=== PATIENT | male | born 1950 | race Caucasian/White ===

== ENCOUNTER → 2016-10-27 | Outpatient (CLI) | payer MEDICARE, OTHER ==
[~2016-10-27] MED LIST: ALBU6.7H INH; ALLE4TAB7 PO; ATOR20TA15 PO; CYCL1TAB29 PO; GABA300C5 PO; HYDR-3516 PO; HYDR-3534 PO; HYDR-3580 PO; LISI-519 PO; LISI10TA3 PO; PANT40TA3 PO; RANI150T PO; SYMB160A INH
[2016-10-27 12:37] LABS: AUTOMATED NEUTROPHIL # 3.1 TH/MM3 (1.8-7.7); EOSINOPHIL # 0.1 TH/MM3 (0-0.4); EOSINOPHIL % 2.4 % (0.0-4.0); HEMATOCRIT 37.8 % (39.0-51.0); HEMO FLAGS DIFF FINAL; LYMPH % 28.9 % (9.0-44.0); LYMPHOCYTE # 1.5 TH/MM3 (1.0-4.8); MEAN CELL VOLUME 95.2 FL (80.0-100.0); MEAN CORPUSCULAR HEMOGLOBIN 32.5 PG (27.0-34.0); MEAN CORPUSCULAR HGB CONC 34.2 % (32.0-36.0); MONO % 8.8 % (0.0-8.0); NEUT % 58.9 % (16.0-70.0); PLATELET COUNT 203 TH/MM3 (150-450); RED BLOOD COUNT 3.97 MIL/MM3 (4.50-5.90); RED CELL DISTRIBUTION WIDTH 13.5 % (11.6-17.2); WHITE BLOOD COUNT 5.2 TH/MM3 (4.0-11.0)
[2016-10-27 12:40] LABS: BLOOD, URINE NEG (NEG); GLUCOSE,URINE NEG (NEG); KETONE, URINE NEG (NEG); NITRITE,URINE NEG (NEG); URINE COLOR LIGHT-YELLOW (YELLW/STRAW)
[2016-10-27 12:42] LABS: COMMENT (UR) CULT NOT INDICATED; CULTURE IF INDICATED CULT NOT INDICATED
[2016-10-27 12:52] LABS: APTT (PATIENT) 21.7 SEC (24.3-30.1); PROTHROMBIN TIME - PATIENT 11.1 SEC (9.8-11.6)
[2016-10-27 13:05] LABS: ANION GAP 7 MEQ/L (5-15); AST (GOT) 21 U/L (15-37); BICARBONATE 24.8 MEQ/L (21.0-32.0); BLOOD UREA NITROGEN 20 MG/DL (7-18); CHLORIDE 109 MEQ/L (98-107); GLOMERULAR FILTRATION RATE 70 ML/MIN (>89); GLUCOSE,FASTING 77 MG/DL (74-99); POTASSIUM 4.2 MEQ/L (3.5-5.1); SODIUM (NA) 141 MEQ/L (136-145)
[2016-10-27 13:08] LABS: ALKALINE PHOSPHATASE 61 U/L (45-117); ALT (GPT) 18 U/L (12-78); TOTAL BILIRUBIN ADULT 0.6 MG/DL (0.2-1.0)
--- NOTE | 2016-10-27 14:20 | RADRPT ---
EXAM DATE/TIME: 10/27/2016 12:54 [facility] COMPARISON: No previous studies available for comparison. INDICATIONS : Evaluate for pneumonia, pneumothorax or ccommunicalbe disease. Pre back surgery MEDICAL HISTORY : Hypertension. SURGICAL HISTORY : None. ENCOUNTER: Initial ACUITY: 1 day PAIN SCORE: 0/10 LOCATION: chest FINDINGS: PA and lateral views of the chest demonstrate the lungs to be symmetrically aerated without evidence of mass, infiltrate or effusion. The cardiomediastinal contours are unremarkable. Osseous structure s are intact. CONCLUSION: No acute disease. David Delatorre MD on October 27, 2016 at 14:18 Board Certified Radiologist. This report was verified electronically.
--- NOTE | 2016-10-29 01:22 | EKG ---
Date Performed: 10/27/2016 Time Performed: 11:52:11 PTAGE: 66 years EKG: SINUS BRADYCARDIA WITH OCCASIONAL SUPRAVENTRICULAR PREMATURE COMPLEXES BORDERLINE ECG NO PREVIOUS TRACING DOCTOR: Bertram Hernandez Interpretating Date/Time 10/29/2016 01:22:04
== END ==
LOC: CPRE 11:33
PROVIDERS: ATTEND Neurological Surgery
DX: Z01.810 Encounter for preprocedural cardiovascular examination (principal); Z01.812 Encounter for preprocedural laboratory examination; M51.36 Other intervertebral disc degeneration, lumbar region; M43.06 Spondylolysis, lumbar region; Z79.01 Long term (current) use of anticoagulants; R00.1 Bradycardia, unspecified
CPT/HCPCS: 36415; 71020; 80053; 81001; 85025; 85610; 85730; 93005

== ENCOUNTER 2016-11-02 06:00 | Inpatient (IN) | payer MEDICARE, OTHER ==
[~2016-11-02] VITALS: Ht 182.9 cm; Wt 121.1 kg
[~2016-11-02 06:00] MED LIST changes: -CYCL1TAB29 PO; -GABA300C5 PO; -HYDR-3534 PO; -HYDR-3580 PO; -LISI10TA3 PO; -RANI150T PO
[2016-11-02] MEDS ORDERED: INSULIN HUMAN REGULAR 1,000 UNITS/10 ML VIAL SQ PRN (06:30)
[2016-11-02] MEDS ORDERED: CHLORHEXIDINE GLUCONATE 2 % 1 PACK (2 CLOTHS) TOPICAL PRN (06:30)
[2016-11-02] MEDS ORDERED: METOPROLOL TARTRATE 25 MG TAB PO PRN (06:30)
[2016-11-02] MEDS ORDERED: VANCOMYCIN HCL 1000 MG ON-CALL/NS 250 ML IV SCH ×2 (06:30)
[2016-11-02] MEDS ORDERED: SODIUM CHLORID 0.9% 500 ML IV PRN (06:30)
[2016-11-02] MEDS ORDERED: POVIDONE IODINE 5% (ANTISEPSIS KIT) 4 APPLICATIONS EACH NARE PRN (06:30)
[2016-11-02] MEDS: SODIUM CHLOR 0.9% 1000 ML INJ 1,000 ML IV SCH ×3 (06:30→23:54)
[2016-11-02] MEDS ORDERED: LACTATED RINGER'S 1000 ML IV PRN (06:30)
[2016-11-02] MEDS ORDERED: THROMBIN (TOPICAL) 5,000 UNIT VIAL ONE (07:34)
[2016-11-02] MEDS ORDERED: BUPIVACAINE/EPINEPHRINE 0.5% 50 ML VIAL ONE (07:34)
[2016-11-02] MEDS ORDERED: VANCOMYCIN HCL 1000 MG VIAL ONE (07:34)
[2016-11-02] MEDS ORDERED: GELFOAM SIZE 100 ONE (07:35)
[2016-11-02] MEDS ORDERED: ACETAMINOPHEN 1000 MG/100 ML 100 ML IV ONE (08:10)
[2016-11-02] MEDS ORDERED: ARTIFICIAL TEARS OPTH OINT 3.5 APPLIC/3.5 GM TUBO ONE (08:10)
[2016-11-02] MEDS ORDERED: FAMOTIDINE 20 MG/2 ML VIAL ONE (08:24)
[2016-11-02] MEDS ORDERED: MIDAZOLAM HCL 2 MG/2 ML VIAL ONE (08:24)
--- NOTE | 2016-11-02 08:53 | MH ---
cc: CHRYSTAL RODRIGUEZ DATE OF ADMISSION 11/02/2016 DATE OF ADMISSION 11/02/2016 ADMISSION DIAGNOSIS Lumbar degenerative disk disease HISTORY OF PRESENT ILLNESS This is a 66-year-old male who we initially saw her in December of 2014 when he presented for an evaluation of low back pain and left leg pain. He stated he had a history of low back pain for over 20 years. In the past, he has seen a chiropractor for adjustments which would help with his exacerbations. In October of 2014, he saw his primary care physician for an exacerbation of his low back pain and left leg pain. He states the pain radiates into the left anterior thigh and anterior cuellar and lateral calf. He has numbness in the right anterior thigh and right lateral calf. He also now more recently was seen and he had complaints of pain radiating to the right groin and anterior thigh and also into the cuellar and top of the foot. He also reports that he had fallen secondary to his right leg giving out on him. He has been using a cane for the last two or three months. He has been to pain management and had injections recently which did not help. His pain currently is 7-8/10 in the morning and at night he says that it goes up to 10/10 and even higher. The patient cannot have an MRI scan secondary to metal in has head, so he has had a CT myelogram which were reviewed with the patient on February 11, 2015. He has also had a recent CT of the lumbar spine without contrast. The patient has difficulty walking. He states that he can walk less than a mile. The patient states has tried traction in the 1980s which made his pain worse. He has also had physical therapy in the 1980s which made his pain worse. PAST MEDICAL HISTORY 1. Gastroesophageal reflux disease, 2. Chronic obstructive pulmonary disease 3. Hyperlipidemia, 4. Hypertension, 5. Sleep apnea, uses a C-PAP machine 6. Tonsillectomy in 1959, 7. Right arm surgery in 2010. 8. He is a wounded war from 1968. SOCIAL HISTORY He drinks zero to two drinks of alcohol per day. He denies any substance abuse. He quit smoking in 2003. MEDICATIONS Current, 1. Pantoprazole 40 mg daily. 2. Hydrocodone/Acetaminophen 7.5 mg/325 mg p.r.n. pain. 3. Gabapentin 300 mg t.i.d. 4. Zantac 150 mg p.o. daily. 5. Lisinopril 10 mg p.o. daily 6. Chlorpheniramine 4 mg q.4 h. 7. Atorvastatin 20 mg q.h.s. 8. Proventil inhaler 2 puffs q.4 h. ALLERGIES PENICILLIN G FAMILY HISTORY Noncontributory to his current problem. REVIEW OF SYSTEMS GENERAL: Denies any fever or chills. EARS, NOSE AND THROAT: No pharyngitis, exudates or bloody drainage from his nose. CARDIOVASCULAR: No chest pain or palpitations RESPIRATORY: Positive for shortness of breath and wheezing ABDOMEN: No nausea or vomiting, abdominal pain. GENITOURINARY:: No dysuria or hematuria. MUSCULOSKELETAL: Positive for low back pain. SKIN: No rashes or pruritus NEUROLOGIC: No difficulty with speech or memory ENDOCRINE: No polyuria, polydipsia. HEMATOLOGIC: Positive for easy bruising. No bleeding tendencies. PHYSICAL EXAMINATION HEAD: Normocephalic, atraumatic. NECK: Supple. No carotid bruits heard on auscultation. LUNGS: Clear to auscultation bilaterally. CARDIAC: Regular rate and rhythm, normal S1, S2 ABDOMEN: Soft, nontender. Positive bowel sounds. SKIN: No cyanosis or erythema. MUSCULOSKELETAL: He has bilateral iliopsoas weakness, right more than left, related to pain and weakness. Otherwise, his strength is 5/5 in the lower extremities. He ambulates with a cane. NEUROLOGIC: He is awake, alert and oriented. Cranial nerves II-XII appear grossly intact. Speech is fluent. Comprehension is good. He follows commands well. Sensation reveals numbness in the right lateral thigh otherwise intact in the lower extremities. IMAGING STUDIES CT myelogram of the lumbar spine from January 29, [address] lumbar spine from 09/09/2016 reveals bilateral L5 pars defect with facet arthropathy. He has a central L4-L5 disk protrusion. IMPRESSION A 66-year-old male with a chronic history of low back pain along with right L5 radiculopathy and, more recently, started experiencing some left thigh pain and also the calf. He has numbness and paresthesias that radiate into the right more than left to the dorsal aspect of the right foot and his leg is giving out on him a few times, also has fallen, and uses a cane to get around. The patient underwent epidural injection which made his symptoms worse and the patient states that he cannot live with his current level of discomfort and activity restriction. They are requesting that we proceed with surgical intervention. PLAN We have discussed the findings with the patient and it appears that the L5-S1 pars defect with facet arthropathy and consequent L5 nerve root impingement to the right more than left is more symptomatic for him. The back pain bothers him equally as much as the lower extremity symptoms, which are aggravated with any activity. We have discussed an L5-S1 interbody fusion with pedicle screw fixation. We have discussed the procedure as well as the risk, benefit, alternative and recovery time in great detail with the patient. No guarantees were given to the patient. We also discussed the possibility of adjacent segment disk disease progression. We have also discussed the alternatives of surgical intervention and the risk and benefits with those. I discussed the risks involved with surgery include but not limited to bleeding, infection, muscle weakness, voice hoarseness, difficulty swallowing, heart attack, stroke, blood clots, non fusion, scar tissue formation among others. The patient states that he understands the procedure as well as the risks involved and he is requesting that we proceed. He understands the procedure and all his questions were answered to his satisfaction. He also understands that there are no guarantees with surgery and he wants to proceed and he was therefore scheduled accordingly. Dictated by Inocente Goldstein PA-C MD ARMIN Hanley/ /4:58 PM /8:48 AM
[2016-11-02] MEDS ORDERED: ePHEDrine/NS 25 MG/5 ML SYR IV ONE ×2 (12:00)
[2016-11-02] MEDS ORDERED: LACTATED RINGER'S 1000 ML INJ 1,000 ML IV ONE (12:00)
[2016-11-02] MEDS ORDERED: PROPOFOL 200 MG/20 ML AMP IV ONE (12:00)
[2016-11-02] MEDS ORDERED: GLYCOPYRROLATE 0.4 MG/2 ML VIAL IV ONE (12:00)
[2016-11-02] MEDS ORDERED: NEOSTIGMINE 3 MG/3 ML SYR IV ONE (12:00)
[2016-11-02] MEDS ORDERED: PHENYLEPH/NS 1000 MCG/10 ML SYR IV ONE (12:00)
[2016-11-02] MEDS ORDERED: ONDANSETRON HCL 4 MG/2 ML VIAL IV PUSH ONE (12:00)
[2016-11-02] MEDS ORDERED: ROCURONIUM INJ 50 MG/5 ML SYRINGE IV PUSH ONE (12:00)
[2016-11-02] MEDS ORDERED: ACETAMINOPHEN 325 MG TAB PO PRN (12:30)
[2016-11-02] MEDS ORDERED: MAGNESIUM SULFATE INJ 2 GM in SODIUM CHLORIDE 0.9% INJ 100 ML IV PRN (12:30)
[2016-11-02] MEDS ORDERED: NALOXONE HCL 0.4 MG/ML AMP IV PRN (12:30)
[2016-11-02] MEDS ORDERED: MENTHOL LOZENGE BUCCAL PRN (12:30)
[2016-11-02] MEDS ORDERED: PROMETHAZINE INJ 25 MG/ML VIAL IM PRN (12:30)
[2016-11-02] MEDS ORDERED: ONDANSETRON HCL 4 MG/2 ML VIAL IV PRN (12:30)
[2016-11-02] MEDS ORDERED: cloNIDine HCL 0.1 MG TAB PO PRN (12:30)
[2016-11-02] MEDS ORDERED: ALUMINUM/MAGNESIUM/SIMETH 30 ML CUP PO PRN (12:30)
[2016-11-02] MEDS ORDERED: POTASSIUM CHLOR 20 MEQ PREMIX 100 ML IV PRN (12:30)
[2016-11-02] MEDS ORDERED: diphenhydrAMINE HCL 50 MG/ML VIAL IV PRN (12:30)
[2016-11-02] MEDS ORDERED: RESP: ALBUTEROL 2.5 MG/3 ML NEB (PRN) NEB (12:30)
[2016-11-02] MEDS ORDERED: ACETAMINOPHEN/HYDROcodone 325 MG/10 MG TAB PO PRN (12:30)
[2016-11-02] MEDS ORDERED: SODIUM CHLORIDE 0.9% FLUSH 10 ML FLUSH IV FLUSH PRN (12:30)
[2016-11-02] MEDS ORDERED: CALCIUM GLUCONATE INJ 1 GM in SODIUM CHLORIDE 0.9% INJ 100 ML IV PRN (12:30)
--- NOTE | 2016-11-02 12:33 | PD.OP ---
Ramses Loera MD Operative Report Date of Surgery: Nov 02, 2016 Preoperative Diagnosis: Intractable low back pain with right L5 radiculopathy; L5-S1 bilateral pars defect with facet arthropathy and foraminal stenosis Postoperative Diagnosis: Same Procedure: L5-S1 transforaminal interbody fusion with pedicle screw fixation; L5-S1 interbody cage placement; microsurgical technique Anesthesia: Gen. endotracheal by Leonid Richard Surgeon: Robin Richmond M.D. Leather Tooler(s): Samanta Garcia Operation and Findings: Following initiation of general endotracheal anesthesia, the patient had a Yang catheter placed along with sequential compression devices. A gram of vancomycin was administered intravenously and he was turned in a prone position on a Alex frame, on a Cecilio table, and all pressure points adequately padded. The lumbosacral region was then prepped with Chloraprep and sterilely draped with Ioban along the usual sterile draping. A right paraspinal skin incision was then made extending from the L5-S1 level after infiltrating the skin with 0.5% Marcaine with epinephrine solution extending down through the fascia. The muscle fibers were split using avascular fatty plane and detached from the underlying facets, transverse process and lateral portion of lamina on the right side and a self-retaining retractor used for exposure. Intraoperative fluoroscopy was also used for level of confirmation along with microscope magnification for further dissection. There was significant facet and ligamentum flavum hypertrophy noted as well as L5 pars defect with inflammatory changes the in instability leading to foraminal stenosis. Right L5 -S1 facet as well as inflammatory tissue from the pars defect was resected with a drill bit along with the lateral portion of the lamina. There was some disc height collapse along with disc protrusion also leading to the foraminal stenosis. Epidural hemostasis was achieved with bipolar cautery and Gelfoam with thrombin. Subsequently entered into the disc space at the L5-S1 level with a #15 blade and mahogany were used for discectomy. I then placed PEEK cage packed with local autograft bone and more local autograft bone was packed adjacent to the cage in interspace for added interbody fusion. With placement of the cage, I was able to distract the interspace and opened up the foramen further bilaterally. Subsequently in order to facilitate the fusion and provide stabilization, pedicle screw fixation was undertaken using [place] spine screws on entry point at the right L5 levels at the junction of the transverse process and facet and sacral ala. Subsequently using AP and lateral fluoroscopy tap and screw placement. The screws were then connected with a estelle and locked in place with caps. The construct appeared very secure at this point. The area was then copiously irrigated with Vancomycin solution and powder. The retractors were removed and the bipolar cautery used for hemostasis. The muscle fascia was then approximated using 2-0 Vicryl interrupted stitches and then 3-0 Vicryl subcuticular stitches also placed in interrupted fashion. The final skin closure was completed with Mastisol and Steri-Strips. A sterile dressing was then applied. The patient then turned in supine position, extubated and taken to recovery room. There were no intraoperative complications. All sponge and needle counts were correct at the end of procedure. Estimated blood loss about 50 ml. Robin Richmond MD Nov 02, 2016 12:33
[2016-11-02] MEDS ORDERED: DO NOT ADM ANY ANTICOAGULANT DRUGS PRN (12:38)
[2016-11-02] MEDS ORDERED: *morphine SULFATE 8 MG/ML PERIprocedure ONLY ONE ×2 (12:52→13:10)
[2016-11-02 13:43] LABS: AUTOMATED NEUTROPHIL # 8.6 TH/MM3 (1.8-7.7); BASOPHIL % 0.2 % (0.0-2.0); EOSINOPHIL % 0.4 % (0.0-4.0); HEMATOCRIT 36.3 % (39.0-51.0); HEMO FLAGS DIFF FINAL; LYMPH % 8.6 % (9.0-44.0); LYMPHOCYTE # 0.9 TH/MM3 (1.0-4.8); MEAN CELL VOLUME 96.3 FL (80.0-100.0); MEAN CORPUSCULAR HEMOGLOBIN 31.7 PG (27.0-34.0); MEAN CORPUSCULAR HGB CONC 32.9 % (32.0-36.0); MONO % 4.9 % (0.0-8.0); NEUT % 85.9 % (16.0-70.0); PLATELET COUNT 187 TH/MM3 (150-450); RED BLOOD COUNT 3.77 MIL/MM3 (4.50-5.90); RED CELL DISTRIBUTION WIDTH 13.6 % (11.6-17.2)
[2016-11-02] MEDS: PCA - TOTAL MG MORPHINE DELIVERED PER SHIFT SCH ×2 (14:00→20:27)
--- NOTE | 2016-11-02 14:19 | RADRPT ---
EXAM DATE/TIME: 11/02/2016 08:51 [facility] COMPARISON: No previous studies available for comparison. INDICATIONS : Post-op L5-S1 posterior lumbar fusion. MEDICAL HISTORY : None. SURGICAL HISTORY : Craniotomy. ENCOUNTER: Initial ACUITY: 1 day PAIN SCORE: Non-responsive. LOCATION: Lumbar spine. FINDINGS: 2 views are recorded digitally operating room using C-arm during placement of unilateral transpedicul ar screws in the lumbosacral region. CONCLUSION: Intraoperative images. Willem Dia MD on November 02, 2016 at 14:16 Board Certified Radiologist. This report was verified electronically.
--- NOTE | 2016-11-02 14:19 | RADRPT ---
EXAM DATE/TIME: 11/02/2016 08:51 [facility] COMPARISON: No previous studies available for comparison. INDICATIONS : L5-S1 posterior lumbar fusion. Level localization. MEDICAL HISTORY : None. SURGICAL HISTORY : Craniotomy. ENCOUNTER: Initial ACUITY: 1 day PAIN SCORE: Non-responsive. LOCATION: Lumbar spine FINDINGS: Lateral view of lumbosacral region was recorded digitally in the operating room using C-arm. Retract or and localization probe is present. CONCLUSION: Intraoperative image. Willem Dia MD on November 02, 2016 at 14:17 Board Certified Radiologist. This report was verified electronically.
[2016-11-02] MEDS ORDERED: ALBUTEROL SULFATE 90 MCG/ACT HFA 18 GM INHALER INH PRN (14:30)
[2016-11-02] MEDS: MORPHINE SULFATE 30 MG/30 ML PCA IV SCH (14:52)
[2016-11-02] MEDS ORDERED: CHLORPHENIRAMINE 4 MG PO PRN (15:00)
[2016-11-02 17:46] VITALS: BP 142/72; PULSE 74; RESP 18; TEMP 96.6; O2SAT 99
[2016-11-02 19:27] VITALS: BP 156/89; PULSE 85; RESP 18; TEMP 96.9; O2SAT 97
[2016-11-02] MEDS: BUDESONIDE-FORMOTEROL 160/4.5 MCG INHALER INH SCH (20:22)
[2016-11-02] MEDS: ATORVASTATIN 20 MG TAB PO SCH (20:24)
[2016-11-02] MEDS: DOCUSATE SODIUM 100 MG CAP PO SCH (20:24)
[2016-11-02] MEDS: VANCOMYCIN INJ 1,000 MG in SODIUM CHLOR 0.9% 250 ML INJ 250 ML IV SCH (20:24)
[2016-11-02] MEDS: LISINOPRIL 5 MG TAB PO SCH (20:24)
[2016-11-02] MEDS: SODIUM CHLORIDE 0.9% FLUSH 10 ML FLUSH IV FLUSH SCH (20:27)
[2016-11-02] MEDS ORDERED: ZOLPIDEM TARTRATE 5 MG TAB PO PRN (21:00)
[2016-11-02 21:16] VITALS: O2SAT 97
[2016-11-03] VITALS (7 sets, daily range): BP systolic 126–155; BP diastolic 64–95; PULSE 83–95; RESP 18; TEMP 97.7–100.2; O2SAT 95–100
[2016-11-03] MEDS: MORPHINE SULFATE 30 MG/30 ML PCA IV SCH ×2 (02:08→21:06)
[2016-11-03] MEDS: CYCLOBENZAPRINE HCL 10 MG TAB PO PRN ×2 (04:40→20:06)
[2016-11-03] MEDS: PCA - TOTAL MG MORPHINE DELIVERED PER SHIFT SCH ×3 (05:01→22:00)
[2016-11-03] MEDS: SODIUM CHLOR 0.9% 1000 ML INJ 1,000 ML IV SCH ×5 (06:10→20:08)
[2016-11-03] MEDS: BUDESONIDE-FORMOTEROL 160/4.5 MCG INHALER INH SCH ×2 (09:00→20:07)
[2016-11-03] MEDS: SODIUM CHLORIDE 0.9% FLUSH 10 ML FLUSH IV FLUSH SCH ×2 (09:04→20:08)
[2016-11-03] MEDS: VANCOMYCIN INJ 1,000 MG in SODIUM CHLOR 0.9% 250 ML INJ 250 ML IV SCH (09:04)
[2016-11-03] MEDS: LACTULOSE SYRUP 20 GM/30 ML CUP PO SCH (09:05)
[2016-11-03] MEDS: PANTOPRAZOLE SOD 40 MG DELAYED RELEASE TAB PO SCH (09:05)
[2016-11-03] MEDS: DOCUSATE SODIUM 100 MG CAP PO SCH ×2 (09:05→20:06)
[2016-11-03] MEDS: ACETAMINOPHEN/HYDROcodone 325 MG/10 MG TAB PO PRN ×2 (10:55→15:54)
[2016-11-03] MEDS: MAGNESIUM HYDROXIDE SUSP 30 ML CUP PO PRN (20:06)
[2016-11-03] MEDS: LISINOPRIL 5 MG TAB PO SCH (20:07)
[2016-11-03] MEDS: ATORVASTATIN 20 MG TAB PO SCH (20:07)
[2016-11-04] VITALS: BP 146/75; PULSE 89; RESP 18; TEMP 97.6; O2SAT 97
[2016-11-04 04:33] VITALS: BP 127/59; PULSE 90; RESP 18; TEMP 97; O2SAT 96
[2016-11-04] MEDS: ACETAMINOPHEN/HYDROcodone 325 MG/10 MG TAB PO PRN (05:06)
[2016-11-04] MEDS: PCA - TOTAL MG MORPHINE DELIVERED PER SHIFT SCH (06:00)
[2016-11-04 08:00] VITALS: BP 107/72; PULSE 75; RESP 17; TEMP 98; O2SAT 96
--- NOTE | 2016-11-04 08:39 | HHI.NSPN ---
History Chief Complaint: Incisional pain. Interval History 11/03/16: Note from yesterday did not save. Pt awake and alert. Sitting up in chair complains of incisional pain. No radiculopathy or paresthesias in LEs. Pain controlled with PIGMENT PROCESSOR. Review of Systems General: Negative for: fever, chills, insomnia Respiratory: Negative for: shortness of breath, cough, sputum Cardiovascular: Negative for: chest pain Gastrointestinal: Negative for: nausea, vomitting, diarrhea, constipation Exam Results Vital Signs Date Time Temp Pulse Resp B/P (MAP) Pulse Ox O2 Delivery O2 Flow Rate FiO2 11/04/16 06:00 18 11/04/16 04:33 97.0 90 127/59 (81) 96 11/03/16 08:52 21 11/02/16 16:45 Room Air 11/02/16 12:37 3 Intake and Output 11/04/16 11/04/16 11/05/16 08:00 16:00 00:00 Intake Total 720 ml Output Total 800 ml Balance -80 ml Physical Examination Resp: CTA bilaterally Heart: NSR no murmurs Abd: Soft positive bs Skin: No cyanosis or erythema. Muscle: Moves LEs with good strength Neuro: Pt awake and alert. Sitting up in chair. Follows commands well. Sensation intact in LEs. Lab, Micro, Other Results Last Impressions Lumbar Spine X-Ray 11/02/16 0000 Signed Impressions: Service Date/Time: Wednesday, November 02, 2016 08:51 - CONCLUSION: Intraoperative image. Willem Dia MD Medical Decision Making Impression and Plan A: 66 y/o M s/p L5/S1 TLIF with interbody cage and pedicle screw fixation. P: Continue with pain control Continue with rehab efforts. Luis Goldstein Nov 04, 2016 08:39
--- NOTE | 2016-11-04 08:47 | HHI.NSPN ---
History Chief Complaint: Incisional pain. Interval History 11/03/16: Note from yesterday did not save. Pt awake and alert. Sitting up in chair complains of incisional pain. No radiculopathy or paresthesias in LEs. Pain controlled with [employer]ER FOAM RUBBER. 11/04/16: Pt awake and alert. Sitting up in chair. Incisional pain controlled and improving. Pt on CURER FOAM RUBBER will stop this. No radiculopathy or paresthesias in LE. Review of Systems General: Negative for: fever, chills, insomnia Respiratory: Negative for: shortness of breath, cough, sputum Cardiovascular: Negative for: chest pain Gastrointestinal: Negative for: nausea, vomitting, diarrhea, constipation Exam Results Vital Signs Date Time Temp Pulse Resp B/P (MAP) Pulse Ox O2 Delivery O2 Flow Rate FiO2 11/04/16 06:00 18 11/04/16 04:33 97.0 90 127/59 (81) 96 11/03/16 08:52 21 11/02/16 16:45 Room Air 11/02/16 12:37 3 Intake and Output 11/04/16 11/04/16 11/05/16 08:00 16:00 00:00 Intake Total 720 ml Output Total 800 ml Balance -80 ml Physical Examination Resp: CTA bilaterally Heart: NSR no murmurs Abd: Soft positive bs Skin: No cyanosis or erythema. RN changed bandage this morning. Muscle: Moves LEs with good strength. More ambulatory. Neuro: Pt awake and alert. Sitting up in chair. Follows commands well. Sensation intact in LEs. Lab, Micro, Other Results Last Impressions Lumbar Spine X-Ray 11/02/16 0000 Signed Impressions: Service Date/Time: Wednesday, November 02, 2016 08:51 - CONCLUSION: Intraoperative image. Willem Dia MD Medical Decision Making Impression and Plan A: 66 y/o M s/p L5/S1 TLIF with interbody cage and pedicle screw fixation. P: Pt adamant that he go home today. He states he will follow all restrictions. He had planned to evacuate but now states he is going to stay home and he feels same and secure in his home. Luis Goldstein Nov 04, 2016 08:47
[2016-11-04] MEDS ORDERED: CYCL1TAB29 PO (08:56)
[2016-11-04 09:00] VITALS: RESP 18
[2016-11-04] MEDS: BUDESONIDE-FORMOTEROL 160/4.5 MCG INHALER INH SCH (09:49)
[2016-11-04] MEDS: SODIUM CHLORIDE 0.9% FLUSH 10 ML FLUSH IV FLUSH SCH (09:49)
[2016-11-04] MEDS: LACTULOSE SYRUP 20 GM/30 ML CUP PO SCH (09:50)
[2016-11-04] MEDS: PANTOPRAZOLE SOD 40 MG DELAYED RELEASE TAB PO SCH (09:50)
[2016-11-04] MEDS: DOCUSATE SODIUM 100 MG CAP PO SCH (09:50)
[2016-11-04] MEDS: MAGNESIUM HYDROXIDE SUSP 30 ML CUP PO PRN (09:50)
[2016-11-04] MEDS: CYCLOBENZAPRINE HCL 10 MG TAB PO PRN (12:42)
[2016-11-16] MEDS ORDERED: CYCL1TAB29 PO (10:34)
[2016-11-16] MEDS ORDERED: HYDR-3534 PO (16:28)
== END 2016-11-04 12:44 | disposition home health service (06) | DRG 460 ==
LOC: HSDI 06:00 → N06A 17:36
PROVIDERS: ADMIT Neurological Surgery; ATTEND Neurological Surgery
PROC: 0SB40ZZ Excision of Lumbosacral Disc, Open Approach (ICD-10-PCS; 2016-11-02)
PROC: 0SG30AJ Fusion of Lumbosacral Joint with Interbody Fusion Device, Posterior Approach, Anterior Column, Open Approach (ICD-10-PCS; principal; 2016-11-02 08:27)
DX: M51.17 Intervertebral disc disorders with radiculopathy, lumbosacral region (principal); J44.9 Chronic obstructive pulmonary disease, unspecified; I10 Essential (primary) hypertension; E78.5 Hyperlipidemia, unspecified; G47.30 Sleep apnea, unspecified; K21.9 Gastro-esophageal reflux disease without esophagitis; M46.96 Unspecified inflammatory spondylopathy, lumbar region; G89.29 Other chronic pain; M48.07 Spinal stenosis, lumbosacral region; Z87.891 Personal history of nicotine dependence
CPT/HCPCS: 72020; 72100; 76000; 80048; 85025; 86850; 86900; 86901; 86920; 94150; C1713; J0131; J2250; J2270; J2370; J2405; J2710; J3010; J3370; J7030; J7050; J7120